=== PATIENT | male | born 1990 | race Two or more races ===

== ENCOUNTER 2018-01-15 07:57 | Emergency (ER) | payer OTHER ==
[~2018-01-15] VITALS: Ht 175.3 cm; Wt 75.0 kg
[2018-01-15 08:09] VITALS: BP 166/101
== END 2018-01-15 08:41 | disposition home or self-care (01) ==
LOC: EMS 07:58
DX: F41.9 Anxiety disorder, unspecified (principal); R10.9 Unspecified abdominal pain; I10 Essential (primary) hypertension; F19.10 Other psychoactive substance abuse, uncomplicated
CPT/HCPCS: 99283